=== PATIENT | male | born 1960 | race Caucasian/White ===

== ENCOUNTER 2017-03-30 12:52 | Emergency (ER) | payer OTHER ==
[~2017-03-30] VITALS: Ht 185.4 cm; Wt 117.9 kg
[~2017-03-30 12:52] MED LIST: PERCOCET 5-3251 EACH PO
[2017-03-30] MEDS ORDERED: METOPROLOL SUCC50 MG PO (14:07)
[2017-03-30] MEDS ORDERED: OMEPRAZOLE40 MG PO (14:07)
== END 2017-03-30 15:50 | disposition home or self-care (01) ==
LOC: ER 12:52
DX: S01.01XA Laceration without foreign body of scalp, initial encounter (principal); I10 Essential (primary) hypertension; K21.9 Gastro-esophageal reflux disease without esophagitis; Z88.6 Allergy status to analgesic agent; W00.0XXA Fall on same level due to ice and snow, initial encounter; Y93.89 Activity, other specified; Y92.89 Other specified places as the place of occurrence of the external cause; Y99.8 Other external cause status